=== PATIENT | female | born 1965 | race African-American/Black ===

== ENCOUNTER 2024-07-02 11:48 | Emergency (ER) | payer SELFPAY ==
[~2024-07-02] VITALS: Ht 157.5 cm; Wt 73.0 kg
[2024-07-02 12:39] VITALS: TEMP 98; O2SAT 99
[2024-07-02 13:56] LABS: BASOPHILS % 0.5 % (0.0-2.0); CHLORIDE 106 mEq/L (98-107); EOSINOPHILS % 1.4 % (0.0-5.0); HEMATOCRIT. 43.6 % (36.0-48.0); HEMOGLOBIN. 13.8 g/dL (12.0-16.0); LYMPHOCYTES % 32.5 % (20.0-50.0); MEAN CORPUSCULAR HEMOGLOBIN 27.7 pg (28.0-32.0); MEAN CORPUSCULAR HGB CONC 31.7 g/dL (31.0-37.0); MEAN CORPUSCULAR VOLUME 87.4 fL (81.0-99.0); MEAN PLATELET VOLUME 7.3 fl (7.4-10.4); MONOCYTES % 10.1 % (2.0-8.0); NEUTROPHILS % 55.5 % (40.0-76.0); PLATELET 351 x1000/uL (130-400); RED BLOOD CELL COUNT 4.99 mill/uL (4.2-5.4); RED CELL DISTRIBUTION WIDTH 15.4 % (11.6-14.6); SODIUM 138 mEq/L (136-145); WHITE BLOOD COUNT 8.8 x1000/uL (4.5-11.0)
[2024-07-02 13:57] LABS: CARBON DIOXIDE 23 mEq/L (21-32)
[2024-07-02 14:02] LABS: CREATININE 1.1 mg/dL (0.6-1.0); GLUCOSE 88 mg/dL (70-105); UREA NITROGEN BLOOD 24 mg/dL (9-23)
[2024-07-02 14:05] LABS: TROPONIN I HIGH SENSITIVITY < 4 ng/L (3.0-34)
[2024-07-02] MEDS ORDERED: DIPH25CA83 MT (14:55)
[2024-07-02] MEDS ORDERED: TC1C15 TP (14:55)
[2024-07-02 16:10] VITALS: BP 125/78; PULSE 85; RESP 17; O2SAT 98
== END 2024-07-02 15:00 | disposition home or self-care (01) ==
LOC: ER 11:48
DX: B34.9 Viral infection, unspecified (principal); L50.9 Urticaria, unspecified; Z88.2 Allergy status to sulfonamides; Z90.710 Acquired absence of both cervix and uterus
CPT/HCPCS: 36415; 71045; 80048; 84484; 85025; 93005; 99285

== ENCOUNTER 2025-03-26 10:54 | Emergency (ER) | payer OTHER ==
[~2025-03-26] VITALS: Ht 165.1 cm; Wt 72.0 kg
[~2025-03-26 10:54] MED LIST: DIPH25CA83 MT; TC1C15 TP
[2025-03-26 11:03] VITALS: O2SAT 96
[2025-03-26 12:00] LABS: BASOPHILS % 0.3 % (0.0-2.0); EOSINOPHILS % 0.3 % (0.0-5.0); HEMATOCRIT. 41.6 % (36.0-48.0); HEMOGLOBIN. 13.6 g/dL (12.0-16.0); LYMPHOCYTES % 40.5 % (20.0-50.0); MEAN PLATELET VOLUME 7.4 fl (7.4-10.4); MONOCYTES % 13.6 % (2.0-8.0); NEUTROPHILS % 45.3 % (40.0-76.0); PLATELET 270 x1000/uL (130-400); RED BLOOD CELL COUNT 4.86 mill/uL (4.2-5.4); RED CELL DISTRIBUTION WIDTH 14.7 % (11.6-14.6)
[2025-03-26 12:16] LABS: TROPONIN I HIGH SENSITIVITY < 4 ng/L (3.0-34)
[2025-03-26 12:17] LABS: CREATININE 0.9 mg/dL (0.6-1.0)
[2025-03-26 12:18] LABS: UREA NITROGEN BLOOD 19 mg/dL (9-23)
[2025-03-26 12:19] LABS: ASPARTATE AMINOTRANSFERASE 29 IU/L (<34)
[2025-03-26 12:20] LABS: BILIRUBIN DIRECT < 0.1 mg/dL (<=3.0); BILIRUBIN TOTAL 0.3 mg/dL (0.1-1.0); PROTEIN TOTAL 8.1 g/dL (6.0-8.3)
[2025-03-26 13:11] LABS: CLARITY URINE CLEAR (CLEAR); COLOR URINE DARK YELLOW (YELLOW); GLUCOSE URINE NEGATIVE (NEGATIVE); KETONES URINE 2+ (NEGATIVE); LEUKOCYTE ESTERASE URINE NEGATIVE (NEGATIVE); NITRITE URINE NEGATIVE (NEGATIVE); OCCULT BLOOD URINE NEGATIVE (NEGATIVE); PH URINE 5.5 (4.5-8.0); PROTEIN URINE 1+ (NEGATIVE); SPECIFIC GRAVITY URINE 1.028 (1.005-1.030); UROBILINOGEN URINE 0.2 E.U./dL (0.2-1.0)
[2025-03-26 13:51] LABS: *AMPHETAMINES SCREEN URINE NEGATIVE (NEGATIVE); *BARBITURATES SCREEN URINE NEGATIVE (NEGATIVE); *BENZODIAZEPINES SCREEN URINE NEGATIVE (NEGATIVE); *COCAINE SCREEN URINE NEGATIVE (NEGATIVE); CANNABINOID URINE SCREEN PRESUMPTIVE POSITIVE (NEGATIVE); ECSTASY MDMA SCREEN URINE CONF.TEST INDICATED (NEGATIVE); METHADONE URINE SCREEN NEGATIVE (NEGATIVE); OPIATES URINE SCREEN NEGATIVE (NEGATIVE); PHENCYCLIDINE URINE SCREEN NEGATIVE (NEGATIVE)
[2025-03-26 13:57] LABS: MUCUS URINE 3+ /lpf (< = 2+); RBC URINE NONE SEEN /hpf (0-2); SQUAMOUS EPITHELIAL CELL URINE FEW /lpf (RARE/1+); WBC URINE 0-2 /hpf (0-2)
[2025-03-26 13:58] LABS: BACTERIA URINE TRACE
[2025-03-26 14:25] VITALS: BP 128/88; PULSE 90; RESP 22; TEMP 37.2; O2SAT 96
== END 2025-03-26 14:39 | disposition home or self-care (01) ==
LOC: ER 10:54 → CMPBEDREQ 03-28 07:22
DX: J01.90 Acute sinusitis, unspecified (principal); K21.9 Gastro-esophageal reflux disease without esophagitis; Z88.2 Allergy status to sulfonamides; Z90.710 Acquired absence of both cervix and uterus; Z79.899 Other long term (current) drug therapy
CPT/HCPCS: 80076; 80305; 80048; 81003; 85025; 87420; 84484; 87804 ×2; 36415; 71045; 93005; 99285; Z7610; A4606

== ENCOUNTER 2025-04-07 06:23 | Emergency (ER) | payer OTHER ==
[~2025-04-07] VITALS: Ht 157.5 cm; Wt 70.0 kg
[2025-04-07 06:34] VITALS: O2SAT 99
[2025-04-07] MEDS ORDERED: METH-653 MT (07:52)
[2025-04-07 07:56] VITALS: TEMP 36.7; O2SAT 99
[2025-04-07 08:04] VITALS: BP 122/75; PULSE 80; RESP 18
[2025-04-07] MEDS: KETOROLAC 30MG/ML VIAL IM ONE (08:04)
== END 2025-04-07 08:11 | disposition home or self-care (01) ==
LOC: ER 06:23
DX: M25.552 Pain in left hip (principal); Z90.710 Acquired absence of both cervix and uterus; Z88.2 Allergy status to sulfonamides
CPT/HCPCS: 73502; 96372; 99283; J1885; Z7610